=== PATIENT | female | born 1990 | race African-American/Black ===

== ENCOUNTER 2022-07-05 01:44 | Emergency (ER) | payer MEDICARE, OTHER ==
[~2022-07-05] VITALS: Ht 180.3 cm; Wt 99.8 kg
--- NOTE | 2022-07-05 02:50 | NUR ---
Patient BIB [facility] from home for c/o right flank pain, dysuria and foul smelling urine with nausea that started about 4hr [employer]. Patient also reported that she was seen at urgent care and was prescribed Amoxicillin and Doxycycline.
--- NOTE | 2022-07-05 02:59 | NUR ---
Dr. Thomas at bedside for MSE.
[2022-07-05 03:42] LABS: *BILIRUBIN,URIN NEGATIVE (NEGATIVE); *CLARITY,URINE CLEAR (CLEAR); *COLOR,URINE YELLOW (YELLOW); *KETONES,URINE TRACE (NEGATIVE); *UROBILINOGEN,URINE 0.2 E.U./dl (NORMAL); LEUKOCYTE ESTERASE ,URINE NEGATIVE (NEGATIVE); NITRITE, URINE NEGATIVE (NEGATIVE); PH,URINE 5.5 (5.0-8.0); UGLUCOSE NEGATIVE (NEGATIVE)
[2022-07-05 03:44] LABS: *BLOOD, URINE NEGATIVE (NEGATIVE)
[2022-07-05 03:45] LABS: BACTERIA,URINE RARE /HPF (NONE SEEN); RBC,URINE 0-3 /HPF (0-3); SQUAMOUS EPITHELIAL CELL,UR FEW /HPF (NONE SEEN); WBC,URINE 0-3 /HPF (0-3)
[2022-07-05] MEDS ORDERED: HYDROMORPHONE 1 MG/1 ML DISP.SYRIN IV ONE (03:45)
[2022-07-05] MEDS ORDERED: IV NORMAL SALINE 1000 ML BAG IV ONE (03:45)
[2022-07-05] MEDS ORDERED: ONDANSETRON 4 MG/2 ML VIAL IV ONE (03:45)
[2022-07-05 03:46] LABS: *URINE HCG, QUAL NEGATIVE (NEGATIVE)
[2022-07-05] MEDS ORDERED: ONDANSETRON 4 MG/2 ML VIAL ONE (03:46)
[2022-07-05] MEDS ORDERED: HYDROMORPHONE 1 MG/1 ML DISP.SYRIN ONE (03:47)
[2022-07-05 03:49] LABS: HEMATOCRIT 42.6 % (31.2-41.9); MEAN CORPUSCULAR HEMOGLOBIN 29.2 uug (24.7-32.8); MEAN CORPUSCULAR VOLUME 84.5 fL (75.5-95.3); PLATELET COUNT (AUTO) 237 K/uL (179-408)
[2022-07-05 03:56] LABS: CREATININE 1.3 mg/dL (0.6-1.3); POTASSIUM 3.8 mmol/L (3.5-5.1)
--- NOTE | 2022-07-05 03:56 | NUR ---
Dr. Thomas at bedside.
[2022-07-05 04:07] LABS: BILIRUBIN,DIRECT 0.2 mg/dL (0.0-0.2); BILIRUBIN,TOTAL 0.5 mg/dL (0.2-1.0); TOTAL PROTEIN, SERUM 7.8 g/dL (6.4-8.2)
[2022-07-05] MEDS ORDERED: CYCL10TA9 PO ×2 (04:45→06:53)
[2022-07-05] MEDS ORDERED: HYDR-4209 PO ×2 (04:45→06:53)
[2022-07-05] MEDS ORDERED: ONDA4TAB5 PO ×2 (04:45→06:53)
--- NOTE | 2022-07-05 07:22 | NUR ---
SBAR report given to RN day shift.
[2022-07-05 07:47] VITALS: BP 138/81
--- NOTE | 2022-07-05 07:47 | NUR ---
Patient discharged to home in stable condition. Written and verbal after care instructions given. Patient verbalizes understanding of instructions. Stressed follow up or return to ER for worsening s/s. Pt stated she ghanshyam take an Uber ride home.
--- NOTE | 2022-07-05 07:47 | NUR ---
IV removed. Catheter intact and site benign. Pressure and 4x4 gauze applied to site. No bleeding noted.
== END 2022-07-05 07:48 | disposition home or self-care (01) ==
LOC: ER 01:59
DX: M54.50 Low back pain, unspecified (principal); Z20.822 Contact with and (suspected) exposure to COVID-19; I45.6 Pre-excitation syndrome; E66.9 Obesity, unspecified; Z68.30 Body mass index [BMI] 30.0-30.9, adult; D72.821 Monocytosis (symptomatic); R80.9 Proteinuria, unspecified
CPT/HCPCS: 99284; 96374; 96361; 96375; 87426; 80076; 80048; 81001; 84703; 83690; 85025; 36415; J2405; J1170; J7040; A4663